=== PATIENT | male | born 1990 | race Caucasian/White ===

== ENCOUNTER 2019-12-29 13:06 | Emergency (ER) | payer BC ==
[~2019-12-29] VITALS: Ht 180.3 cm; Wt 131.5 kg
[2019-12-29 13:06] VITALS: BP_SYST 143
--- NOTE | 2019-12-29 13:06 | NUR ---
Placed in room 1. Placed on cardiac monitor technician, blood pressure machine and pulse oximeter. To gown for exam. Side rails up. Report given to RA Alanis.
--- NOTE | 2019-12-29 13:08 | NUR ---
Pt brought by ACLS , A&Ox4, pt presents to ER with anxiety/ chest pain/ epigastric pain since today and while he was wt work, skin pink and warm, respirations even and unlabored , cap refill <3, pt denies SOB , no N/V noted, will cont to monitor.
[2019-12-29] MEDS ORDERED: LORazepam 1 MG TABLET PO ONE (13:30)
[2019-12-29] MEDS ORDERED: KETOROLAC TROMETHAMINE 60 MG/2 ML VIAL IM ONE (13:30)
--- NOTE | 2019-12-29 13:30 | NUR ---
Dr Erazo evaluating patient at bedside
[2019-12-29 13:55] LABS: EOSINOPHILS # (AUTO) 0.1 K/uL (0.0-0.4); HEMOGLOBIN 14.2 g/dL (14.0-18.0); RED BLOOD CELL COUNT(AUTO) 4.92 MIL/uL (4.2-6.2)
--- NOTE | 2019-12-29 13:58 | NUR ---
ER Dr. Bacon at bedside examining patient.
[2019-12-29 14:00] LABS: BASOPHILS # (AUTO) 0.1 K/uL (0.0-0.2); BASOPHILS % (AUTO) 0.5 % (0.0-2.0); EOSINOPHILS % (AUTO) 0.9 % (0.0-4.0); HEMATOCRIT 42.6 % (36-54); LYMPHOCYTES # (AUTO) 1.9 K/uL (1.0-5.5); LYMPHOCYTES % (AUTO) 18.3 % (20.5-51.5); MEAN CORPUSCULAR HEMOGLOBIN 29 pg (27-31); MEAN CORPUSCULAR HGB CONC 33 % (32-36); MEAN CORPUSCULAR VOLUME 87 fL (79.0-98.0); MONOCYTES # (AUTO) 0.5 K/uL (0.0-1.0); MONOCYTES % (AUTO) 4.7 % (1.7-9.3); NEUTROPHILS % (AUTO) 75.6 % (40.0-70.0); PLATELET COUNT (AUTO) 159 K/uL (130-430); RED CELL DISTRIBUTION WIDTH 13.9 % (9.0-15.0); WHITE BLOOD COUNT (AUTO) 10.6 K/uL (4.8-10.8)
[2019-12-29 14:02] LABS: CALCIUM 8.8 mg/dL (8.4-11.0); CREATININE 0.94 mg/dL (0.55-1.30); POTASSIUM 4.1 mmol/L (3.5-5.1)
[2019-12-29 14:16] LABS: ALBUMIN 3.9 g/dL (3.4-4.8); TOTAL BILIRUBIN 0.5 mg/dL (0.0-1.0)
--- NOTE | 2019-12-29 15:06 | NUR ---
sleep lab technologist at bedside as ordered by Dr. Bacon.
[2019-12-29 15:53] VITALS: BP_SYST 124
--- NOTE | 2019-12-29 15:55 | NUR ---
Patient given written and verbal discharge instructions and verbalizes understanding. ER MD discussed with patient the results and treatment provided. Patient in stable condition. ID arm band removed. Rx of LISINOPRIL given. Patient educated on pain management and to follow up with PMD. Pain Scale 0/10. Opportunity for questions provided and answered. Medication side effect fact sheet provided.
== END 2019-12-29 15:53 | disposition home or self-care (01) ==
LOC: SED 13:06
DX: I10 Essential (primary) hypertension (principal)
CPT/HCPCS: 36415; 71045; 76700; 80053; 81002; 82550; 83690; 83880; 84484; 85025; 93005; 96372; 99285; J1885